=== PATIENT | female | born 1970 | race Caucasian/White ===

== ENCOUNTER 2023-08-09 08:55 | Emergency (ER) | payer OTHER ==
[~2023-08-09] VITALS: Ht 152.4 cm; Wt 68.0 kg
[2023-08-09 08:57] VITALS: O2SAT 99
[2023-08-09] MEDS ORDERED: IBUP-2028 PO (09:26)
[2023-08-09] MEDS: IBUPROFEN 400MG TABLET PO ONE (09:33)
[2023-08-09 10:23] VITALS: BP 140/81; PULSE 78; RESP 18; TEMP 98.7
== END 2023-08-09 10:54 | disposition home or self-care (01) ==
LOC: ER 08:55
DX: M54.50 Low back pain, unspecified (principal); I10 Essential (primary) hypertension
CPT/HCPCS: 81025; 99283